=== PATIENT | male | born 1945 | race Caucasian/White ===

== ENCOUNTER 2016-04-26 10:44 | Emergency (ER) | payer MEDICARE ==
[2016-04-26] MEDS ORDERED: Sodium Chloride 0.9% 10 ML Syringe FLUSH PRN (11:33)
[2016-04-26] MEDS ORDERED: Ondansetron 4 MG/2 ML SDV IVPUSH ONE (11:36)
[2016-04-26] MEDS ORDERED: HYDROmorphone 0.5 MG/0.5 ML Syringe IVPUSH ONE (11:36)
--- NOTE | 2016-04-26 11:38 | EDM.PDOC ---
ED HPI GI/ABDOMINAL - General Chief Complaint: Flank Pain Stated Complaint: LOWER BACK/ABD PAIN TOWARDS LT Time Seen by Provider: 04/26/16 11:28 Source: Reports: Patient, Family, RN notes reviewed History Limitations: Reports: No limitations - History of Present Illness INITIAL COMMENTS - FREE TEXT/NARRATIVE: 71-year-old gentleman presents emergency Department a complaint of left flank and lower abdominal pain, he states the pain awoke him this morning it will gradually become intense 8/10 and then slowly fade off and has been cyclical denies any fevers does get nausea with the pain, no history of abdominal surgery remote history of kidney stones in his 20s - Related Data Allergies/ADRs: Allergies Allergy/AdvReac Type Severity Reaction Status Date / Time naproxen Allergy Other Uncoded 04/26/16 11:00 Home Meds: Home Meds Aspirin/Calcium Carbonate/Mag [Aspirin Buffered 325 mg Tab] 325 mg PO BEDTIME [History] Lisinopril 2.5 mg PO BEDTIME 11/05/13 [History] Metoprolol Succinate 12.5 mg PO BEDTIME 11/05/13 [History] Rosuvastatin [Crestor] 5 mg PO BEDTIME 11/05/13 [History] Past Medical History Cardiovascular History: Reports: CAD, High cholesterol, Hypertension Gastrointestinal History: Reports: Pancreatitis Other Gastrointestinal History: 2013 Musculoskeletal History: Reports: Other (see below) Other Musculoskeletal History: rotator cuff surgery rt repaired in 2010 - Infectious Disease History Infectious Disease History: Reports: Chicken pox, Measles, Mumps, Shingles - Past Surgical History Cardiovascular Surgical History: Reports: Other (see below) Other Cardiovascular Surgeries/Procedures: angioplasty with stents in 2008 Social & Family History - Tobacco Use Smoking Status *Q: Former Smoker Years of Tobacco use: 35 Used Tobacco, but Quit: Yes Month Tobacco Last Used: 1998 Second Hand Smoke Exposure: No - Caffeine Use Caffeine Use: Reports: Coffee Other Caffeine Use: 2 cups q day - Alcohol Use Days Per Week of Alcohol Use: 7 Number of Drinks Per Day: 2 Total Drinks Per Week: 14 Date of Last Drink: 04/25/16 - Recreational Drug Use Recreational Drug Use: No ED ROS GENERAL - Review of Systems Review Of Systems: See Below Constitutional: Denies: fever, chills HEENT: Reports: No symptoms Respiratory: Reports: no symptoms Cardiovascular: Reports: No symptoms GI/Abdominal: Reports: Abdominal pain, Nausea : Reports: no symptoms Musculoskeletal: Reports: back pain Skin: Reports: no symptoms Neurological: Reports: no symptoms ED EXAM, GI/ABD - Physical Exam Exam: See Below Text/Narrative:: General: Male, mild discomfort secondary to pain, alert and oriented x3 HEENT: head is atraumatic normocephalic, eyes pupils equal round reactive to light and accommodation sclera clear no conjunctivitis appreciated. Ears tympanic membranes clear and [place]acheco landmarks and light reflex are present bilaterally canals are clear. Nose no septal deviation, nares are clear, no blood present. Mouth mucosa is moist and pink no erythema or exudate noted in soft palate, tongue is midline uvula is midline, dentition is intact. Neck: Supple no thyromegaly no tracheal deviation. Nodes: Cervical nodes subclavicular nodes nontender no palpable lymphadenopathy noted. Lungs: clear to auscultation bilaterally with symmetrical respirations, no adventitious noise appreciated. CV: Regular rate and rhythm S1 and S2 appreciated no murmurs rubs or gallops noted. Abdomen: Soft, tender to palpation left flank area, no palpable masses or organomegaly appreciated, no distention no guarding bowel sounds are present, . Neuro: Cranial nerves II through XII grossly intact Skin: Warm and dry, intact Extremities: No lower extremity edema appreciated, Course - Vital Signs Last Recorded V/S: Last Vital Signs Temp 96.8 F 04/26/16 11:01 Pulse 58 L 04/26/16 11:01 Resp 16 04/26/16 11:01 BP 150/92 H 04/26/16 11:01 Pulse Ox 94 L 04/26/16 11:01 - Orders/Labs/Meds Orders: Active Orders 24 hr Category Date Time Status Peripheral IV Care [RC] . DIRECTED Care 04/26/16 11:34 Active UA W/MICROSCOPIC [URIN] Urgent Lab 04/26/16 11:33 Uncollected Iopamidol [Isovue-300 (61%)] Med 04/26/16 12:16 Active 148 ml IV . DIRECTED PRN Sodium Chloride 0.9% [Normal Saline] 1,000 ml Med 04/26/16 11:45 Active IV ASDIRECTED Sodium Chloride 0.9% [Normal Saline] 80 ml Med 04/26/16 12:30 Active IV ASDIRECTED Sodium Chloride 0.9% [Saline Flush] Med 04/26/16 11:33 Active 10 ml FLUSH ASDIRECTED PRN Peripheral IV Insertion Adult [OM.PC] Urgent Oth 04/26/16 11:33 Ordered Medication Orders Sodium Chloride (Normal Saline) 1,000 mls @ 500 mls/hr IV ASDIRECTED SUSANA Last Admin: 04/26/16 12:49 Dose: 500 mls/hr Sodium Chloride (Normal Saline) 80 mls @ 3.5 mls/sec IV ASDIRECTED SUSANA Last Admin: 04/26/16 12:22 Dose: 3.5 mls/sec Iopamidol (Isovue-300 (61%)) 148 ml IV . DIRECTED PRN PRN Reason: RADIOLOGY EXAM Stop: 04/27/16 12:17 Last Admin: 04/26/16 12:23 Dose: 148 ml Sodium Chloride (Saline Flush) 10 ml FLUSH ASDIRECTED PRN PRN Reason: Keep Vein Open Last Admin: 04/26/16 12:54 Dose: 10 ml Labs: Laboratory Tests 04/26/16 04/26/16 04/26/16 Range/Units 11:40 11:40 11:40 WBC 8.9 (4.5-11.0) K/uL RBC 4.43 (4.30-5.90) M/uL Hgb 14.9 D (12.0-15.0) g/dL Hct 39.6 L (40.0-54.0) % MCV 89 (80-98) fL MCH 34 H (27-31) pg MCHC 38 H (32-36) % Plt Count 132 L (150-400) K/uL Neut % (Auto) 81 H (36-66) % Lymph % (Auto) 10 L (24-44) % [place] % (Auto) 7 H (2-6) % Eos % (Auto) 2 (2-4) % Baso % (Auto) 1 (0-1) % Sodium 138 L (140-148) mmol/L Potassium 4.0 (3.6-5.2) mmol/L Chloride 103 (100-108) mmol/L Carbon Dioxide 23 (21-32) mmol/L Anion Gap 16.0 H (5.0-14.0) mmol/L BUN 31 H D (7-18) mg/dL Creatinine 1.3 (0.8-1.3) mg/dL Est Cr Clr Drug Dosing TNP Estimated GFR (MDRD) 54 L (>60) Glucose 221 H (74-106) mg/dL Lactic Acid 1.4 (0.4-2.0) mmol/L Calcium 8.4 L (8.5-10.1) mg/dL Total Bilirubin 1.0 (0.2-1.0) mg/dL AST 39 H D (15-37) U/L ALT 69 D (12-78) U/L Alkaline Phosphatase 51 (46-116) U/L Troponin I < 0.017 (0.000-0.056) ng/mL Total Protein 6.9 (6.4-8.2) g/dL Albumin 4.2 (3.4-5.0) g/dL Globulin 2.7 (2.3-3.5) g/dL Albumin/Globulin Ratio 1.6 (1.2-2.2) Lipase 114 (73-393) U/L Meds: Medications Generic Name Dose Route Start Last Admin Trade Name Freq PRN Reason Stop Dose Admin Sodium Chloride 1,000 mls @ 500 mls/hr 04/26/16 11:45 04/26/16 12:49 Normal Saline IV 500 mls/hr ASDIRECTED SUSANA Administration Sodium Chloride 80 mls @ 3.5 mls/sec 04/26/16 12:30 04/26/16 12:22 Normal Saline IV 3.5 mls/sec ASDIRECTED SUSANA Administration Iopamidol 148 ml 04/26/16 12:16 04/26/16 12:23 Isovue-300 (61%) IV 04/27/16 12:17 148 ml . DIRECTED PRN Administration RADIOLOGY EXAM Sodium Chloride 10 ml 04/26/16 11:33 04/26/16 12:54 Saline Flush FLUSH 10 ml ASDIRECTED PRN Administration Keep Vein Open Discontinued Medications Generic Name Dose Route Start Last Admin Trade Name Freq PRN Reason Stop Dose Admin Hydromorphone HCl 0.5 mg 04/26/16 11:36 04/26/16 11:48 Dilaudid IVPUSH 04/26/16 11:37 0.5 mg ONETIME ONE Administration Ketorolac Tromethamine 30 mg 04/26/16 13:24 Toradol IVPUSH 02/28/17 13:25 ONETIME ONE Ondansetron HCl 4 mg 04/26/16 11:36 04/26/16 11:48 Zofran IVPUSH 04/26/16 11:37 4 mg ONETIME ONE Administration Sodium Chloride 10 ml 04/26/16 12:16 04/26/16 12:23 Saline Flush FLUSH 04/26/16 12:17 10 ml ONETIME ONE Administration Departure - Departure Time of Disposition: 13:32 Disposition: Home, Self-Care 01 Condition: good Clinical Impression: Nephrolithiasis Forms: ED Department Discharge Additional Instructions: use hydrocodone as needed for pain control in combination with ibuprofen, try and strain her urine and capture the stone for pathology, Please followup with your primary care provider in 7-10 days if not better, please call return to the emergency department with worsening of symptoms. - My Orders Last 24 Hours: My Active Orders 04/26/16 11:33 UA W/MICROSCOPIC [URIN] Urgent Sodium Chloride 0.9% [Saline Flush] 10 ml FLUSH ASDIRECTED PRN Peripheral IV Insertion Adult [OM.PC] Urgent 04/26/16 11:34 Peripheral IV Care [RC] . DIRECTED 04/26/16 11:45 Sodium Chloride 0.9% [Normal Saline] 1,000 ml IV ASDIRECTED 04/26/16 12:16 Iopamidol [Isovue-300 (61%)] 148 ml IV . DIRECTED PRN 04/26/16 12:30 Sodium Chloride 0.9% [Normal Saline] 80 ml IV ASDIRECTED - Assessment/Plan Last 24 Hours: My Active Orders 04/26/16 11:33 UA W/MICROSCOPIC [URIN] Urgent Sodium Chloride 0.9% [Saline Flush] 10 ml FLUSH ASDIRECTED PRN Peripheral IV Insertion Adult [OM.PC] Urgent 04/26/16 11:34 Peripheral IV Care [RC] . DIRECTED 04/26/16 11:45 Sodium Chloride 0.9% [Normal Saline] 1,000 ml IV ASDIRECTED 04/26/16 12:16 Iopamidol [Isovue-300 (61%)] 148 ml IV . DIRECTED PRN 04/26/16 12:30 Sodium Chloride 0.9% [Normal Saline] 80 ml IV ASDIRECTED Plan: Assessment Acuity = acute Site and laterality = left-sided nephrolithiasis 4 mm in size Etiology = unknown pathology Manifestations = left-sided flank pain Location of injury = home Lab values = platelets low at 1 tissue consistent with a thrombocytopenia sodium load 138 this with hyponatremia glucose elevated to 21 consistent hyperglycemia AST elevated at 39 consistent elevated liver enzymes CT does demonstrate the stone described above Plan he had good pain relief combination Toradol and Dilaudid plan is to discharge home with hydrocodone for pain control in combination with Motrin he is to push fluids strain his urine try and capture the stone follow up with primary care in 7-10 days if no improvement Patient was in agreement with the plan all questions were answered, they were instructed to return to the emergency department or call for worsening symptoms. This note was dictated using [employer] voice recognition software please call with any questions.
[2016-04-26] MEDS ORDERED: Sodium Chloride 0.9% 1,000 ML IV SCH (11:45)
[2016-04-26] MEDS ORDERED: Sodium Chloride 0.9% 10 ML Syringe FLUSH ONE (12:16)
[2016-04-26] MEDS ORDERED: Iopamidol 612 MG/ML 150 ML Bottle IV PRN (12:16)
[2016-04-26] MEDS ORDERED: Sodium Chloride 0.9% 80 ML IV SCH (12:30)
--- NOTE | 2016-04-26 12:42 | CT ---
Abdomen Pelvis w Cont HISTORY: Sided pain. Dose: Total DLP 1206 COMPARISON: Prior CT scan 11/05/2013. FINDINGS: Moderate left-sided hydronephrosis caused by obstructing stone in the proximal left ureter seen on axial image 69 measuring approximately 4 mm. This is seen on coronal image 49. There is diffuse fatty infiltration of liver. Small cyst in the left hepatic lobe measuring 1.5 cm. Spleen, pancreas, adrenal glands, abdominal aorta appear normal. There are some nonobstructing small stones seen in the right kidney measuring up to 7 mm in size. Pelvis appears unremarkable. Impression: 1. 4 mm moderately obstructing stone in the proximal left ureter. Findings called to the emergency room physician at 12:29 PM hours
[2016-04-26] MEDS ORDERED: Ketorolac 30 MG/ML SDV IVPUSH ONE (13:24)
[2016-04-26 15:31] VITALS: BP 138/101
== END 2016-04-26 14:35 | disposition home or self-care (01) ==
LOC: JP.ED 10:44
DX: N13.2 Hydronephrosis with renal and ureteral calculous obstruction (principal); I25.10 Atherosclerotic heart disease of native coronary artery without angina pectoris; E78.00 Pure hypercholesterolemia, unspecified; I10 Essential (primary) hypertension; Z87.891 Personal history of nicotine dependence; Z88.8 Allergy status to other drugs, medicaments and biological substances; Z79.82 Long term (current) use of aspirin; Z79.899 Other long term (current) drug therapy; Z95.5 Presence of coronary angioplasty implant and graft
CPT/HCPCS: 36415; 74177; 80053; 83605; 83690; 84484; 85025; 96361; 96374; 96375; 99284; J1170; J1885; J2405; J7030; J7040; J7050

== ENCOUNTER 2017-06-28 10:43 | Emergency (ER) | payer MEDICARE ==
--- NOTE | 2017-06-28 11:37 | EDM.PDOC ---
ED HPI GENERAL MEDICAL PROBLEM - General Chief Complaint: Abdominal Pain Stated Complaint: PAIN IN STOMACH AREA Time Seen by Provider: 06/28/17 11:33 Source of Information: Reports: Patient History Limitations: Reports: No Limitations - History of Present Illness INITIAL COMMENTS - FREE TEXT/NARRATIVE: pt arrived with pain in the lower abdoman. He is having trouble with incontinence of urine. He has no pain when he voids. He did have one loos stool but he had no further problems. Onset: Today Duration: Hour(s): Location: Reports: Other (pt can not control his urine. ) Associated Symptoms: Reports: Other ( pt is having trouble controlling the urine. ) Lower Abdominal Pain Score (Numeric/FACES): 3 - Related Data Allergies Allergy/AdvReac Type Severity Reaction Status Date / Time naproxen Allergy Other Uncoded 04/26/16 11:00 Home Meds: Home Meds Aspirin/Calcium Carbonate/Mag [Aspirin Buffered 325 mg Tab] 325 mg PO BEDTIME [History] Lisinopril 2.5 mg PO BEDTIME 11/05/13 [History] Metoprolol Succinate 12.5 mg PO BEDTIME 11/05/13 [History] Rosuvastatin [Crestor] 5 mg PO BEDTIME 11/05/13 [History] metFORMIN [Glucophage] 1,000 mg PO BIDMEALS 06/28/17 [History] Past Medical History HEENT History: Reports: Impaired Vision Cardiovascular History: Reports: CAD, High Cholesterol, Hypertension Gastrointestinal History: Reports: Pancreatitis Other Gastrointestinal History: 2013 Genitourinary History: Reports: Renal Calculus, UTI, Recurrent Musculoskeletal History: Reports: Back Pain, Chronic Other Musculoskeletal History: rotator cuff surgery rt repaired in 2010 Endocrine/Metabolic History: Reports: Diabetes, Type II - Infectious Disease History Infectious Disease History: Reports: Chicken Pox, Measles, Mumps, Shingles - Past Surgical History Cardiovascular Surgical History: Reports: Other (See Below) Social & Family History - Tobacco Use Smoking Status *Q: Never Smoker Years of Tobacco use: 35 Used Tobacco, but Quit: Yes Month/Year Tobacco Last Used: 1998 Second Hand Smoke Exposure: No - Caffeine Use Caffeine Use: Reports: Coffee Other Caffeine Use: 2 cups q day - Alcohol Use Days Per Week of Alcohol Use: 7 Number of Drinks Per Day: 2 Total Drinks Per Week: 14 - Recreational Drug Use Recreational Drug Use: No ED ROS GENERAL - Review of Systems Review Of Systems: See Below Constitutional: Reports: No Symptoms HEENT: Reports: No Symptoms Respiratory: Reports: No Symptoms Cardiovascular: Reports: No Symptoms Endocrine: Reports: No Symptoms GI/Abdominal: Reports: Other (pain in the lower abdoman) : Reports: Incontinence Musculoskeletal: Reports: No Symptoms Skin: Reports: No Symptoms Neurological: Reports: No Symptoms ED EXAM, GI/ABD - Physical Exam Exam: See Below Text/Narrative:: pt arrived with pain in the supra pupic area. He felt this a little last evening but it is much worse this pm.. He is also suddenly incontinent of urine. He has no burning when he does pass his urine. Exam Limited By: No Limitations General Appearance: Alert, Moderate Distress Ears: Normal TMs Nose: Normal Inspection Throat/Mouth: Normal Inspection Head: Atraumatic Neck: Normal Inspection Respiratory/Chest: No Respiratory Distress Cardiovascular: Regular Rate, Rhythm GI/Abdominal Exam: Other (pt has mild tenderness in the suprapupic area. He is not guarded. ) (Male) Exam: Deferred Rectal (Males) Exam: Deferred Back Exam: Normal Inspection Extremities: Normal Inspection Neurological: Alert, Oriented, Normal Cognition Psychiatric: Normal Affect Course - Vital Signs Last Recorded V/S: Last Vital Signs Temp 35.5 C 06/28/17 10:54 Pulse 66 06/28/17 10:54 Resp 18 06/28/17 10:54 BP 122/70 06/28/17 10:54 Pulse Ox - Orders/Labs/Meds Orders: Active Orders 24 hr Category Date Time Status UA W/MICROSCOPIC [URIN] Urgent Lab 06/28/17 11:34 Ordered Sodium Chloride 0.9% [Normal Saline] 1,000 ml Med 06/28/17 12:15 Active IV ASDIRECTED Sodium Chloride 0.9% [Normal Saline] 1,000 ml Med 06/28/17 13:45 Active IV ASDIRECTED Tamsulosin [Flomax] Med 06/29/17 09:00 Active 0.4 mg PO PCBREAKFAST Medication Orders Sodium Chloride (Normal Saline) 1,000 mls @ 999 mls/hr IV ASDIRECTED SUSANA Last Admin: 06/28/17 13:39 Dose: 999 mls/hr Infusion: 06/28/17 13:28 Dose: 999 mls/hr Admin: 06/28/17 12:27 Dose: 999 mls/hr Sodium Chloride (Normal Saline) 1,000 mls @ 500 mls/hr IV ASDIRECTED SUSANA Tamsulosin HCl (Flomax) 0.4 mg PO [facility]BREAKFAST [facility] Labs: Laboratory Tests 06/28/17 06/28/17 06/28/17 Range/Units 11:33 11:33 11:34 WBC 7.7 (4.5-11.0) K/uL RBC 4.37 (4.30-5.90) M/uL Hgb 14.6 (12.0-15.0) g/dL Hct 39.4 L (40.0-54.0) % MCV 90 (80-98) fL MCH 33 H (27-31) pg MCHC 37 H (32-36) % Plt Count 148 L (150-400) K/uL Neut % (Auto) 73 H (36-66) % Lymph % (Auto) 13 L (24-44) % [place] % (Auto) 12 H (2-6) % Eos % (Auto) 2 (2-4) % Baso % (Auto) 0 (0-1) % Sodium 141 (140-148) mmol/L Potassium 3.9 (3.6-5.2) mmol/L Chloride 105 (100-108) mmol/L Carbon Dioxide 23 (21-32) mmol/L Anion Gap 12.8 (5.0-14.0) mmol/L BUN 21 H (7-18) mg/dL Creatinine 1.6 H (0.8-1.3) mg/dL Est Cr Clr Drug Dosing TNP Estimated GFR (MDRD) 43 L (>60) Glucose 173 H (74-106) mg/dL Calcium 8.4 L (8.5-10.1) mg/dL Total Bilirubin 1.1 H (0.2-1.0) mg/dL AST 27 (15-37) U/L ALT 47 (12-78) U/L Alkaline Phosphatase 67 (46-116) U/L C-Reactive Protein 2.01 H (0.0-0.3) mg/dL Total Protein 6.5 (6.4-8.2) g/dL Albumin 3.8 (3.4-5.0) g/dL Globulin 2.7 (2.3-3.5) g/dL Albumin/Globulin Ratio 1.4 (1.2-2.2) Urine Color Yellow Urine Appearance Clear Urine pH 5.0 (4.5-8.0) Ur Specific [place] 1.020 (1.008-1.030) Urine Protein Negative (NEGATIVE) mg/dL Urine Glucose (UA) Normal (NEGATIVE) mg/dL Urine Ketones Negative (NEGATIVE) mg/dL Urine Occult Blood Large (NEGATIVE) Urine Nitrite Negative (NEGAITVE) Urine Bilirubin Negative (NEGATIVE) Urine Urobilinogen Normal (NORMAL) mg/dL Ur Leukocyte Esterase Negative (NEGATIVE) Urine RBC 10-20 H (0-5) Urine WBC 0-5 (0-5) Ur Epithelial Cells Not seen Amorphous Sediment Few Urine Bacteria Not seen Urine Mucus Not seen Meds: Medications Generic Name Dose Route Start Last Admin Trade Name Freq PRN Reason Stop Dose Admin Sodium Chloride 1,000 mls @ 999 mls/hr 06/28/17 12:15 06/28/17 13:39 Normal Saline IV 999 mls/hr ASDIRECTED SUSANA Administration Sodium Chloride 1,000 mls @ 500 mls/hr 06/28/17 13:45 Normal Saline IV ASDIRECTED SUSANA Tamsulosin HCl 0.4 mg 06/29/17 09:00 Flomax PO PCBREAKFAST SUSANA Discontinued Medications Generic Name Dose Route Start Last Admin Trade Name Freq PRN Reason Stop Dose Admin Hydromorphone HCl 0.5 mg 06/28/17 13:35 06/28/17 14:09 Dilaudid IVPUSH 06/28/17 13:36 0.5 mg ONETIME ONE Administration Levofloxacin/Dextrose 500 mg/ 100 mls @ 100 mls/hr 06/28/17 13:26 06/28/17 14 :10 Premix IV 06/28/17 14:25 100 mls/hr ONETIME ONE Administration - Re-Assessments/Exams Free Text/Narrative Re-Assessment/Exam: 06/28/17 13:30 pt had rbcs in his urine but very little bacteria, His lab otherwise looked good without elevation in wbc. a cat scan of the abdoman revealed a stone in distal ureter, with a hydro ureter which measurd 9x7x4 Departure - Departure Time of Disposition: 15:16 Disposition: Home, Self-Care 01 Condition: Fair Clinical Impression: Calculus of distal left ureter, Urinary incontinence - Discharge Information Referrals: Giorgio Loja PA [Primary Care Provider] - Forms: ED Department Discharge Care Plan Goals: Dr Zuluaga will call pt and set up a visit. The cat scan has been sent to him., push fluids, percocet 5/325 q6h prn for pin, flomax .4 1 tab daily, rtc if pain should get more severe. cipro 500mg bid - My Orders Last 24 Hours: My Active Orders 06/28/17 11:34 UA W/MICROSCOPIC [URIN] Urgent 06/28/17 12:15 Sodium Chloride 0.9% [Normal Saline] 1,000 ml IV ASDIRECTED 06/28/17 13:45 Sodium Chloride 0.9% [Normal Saline] 1,000 ml IV ASDIRECTED 06/29/17 09:00 Tamsulosin [Flomax] 0.4 mg PO PCBREAKFAST - Assessment/Plan Last 24 Hours: My Active Orders 06/28/17 11:34 UA W/MICROSCOPIC [URIN] Urgent 06/28/17 12:15 Sodium Chloride 0.9% [Normal Saline] 1,000 ml IV ASDIRECTED 06/28/17 13:45 Sodium Chloride 0.9% [Normal Saline] 1,000 ml IV ASDIRECTED 06/29/17 09:00 Tamsulosin [Flomax] 0.4 mg PO PCBREAKFAST
[2017-06-28 12:06] VITALS: BP 122/70
[2017-06-28] MEDS: Sodium Chloride 0.9% 1,000 ML IV SCH ×3 (12:27→14:40)
--- NOTE | 2017-06-28 13:13 | CT ---
Abdomen Pelvis wo Cont CLINICAL HISTORY: Hematuria, low pelvic pain COMPARISON: The TECHNIQUE: Axial tomographic images are obtained from the dome of the diaphragm to the pubic symphysis without IV contrast enhancement. No oral contrast was used. Describe dose FINDINGS: The lung bases are clear. The liver contains a coarse calcification in the dome. This is un changed since prior study. No biliary dilatation is identified. There is a 1.5 cm cyst in the left lo be unchanged from prior study. The gallbladder has a normal appearance. The spleen has a normal size and shape. The pancreas shows no mass. The adrenal glands are normal bilaterally. There is a 7 mm sharmaine cification in the upper pole of the right kidney. There is a punctate calcification in the midpole. T here is no hydronephrosis. The left kidney is hydronephrotic. There is some perinephric stranding. The ureter is mildly dilated along its length. There is periureteral stranding There is a 9 x 7 x 4 mm stone within the distal ure ter. There is mild generalized bladder wall thickening. The prostate is enlarged. The aorta shows atheroma tous calcification without aneurysm. There is no suspicious retroperitoneal adenopathy. IMPRESSION: Moderate left-sided hydronephrosis and hydroureter secondary to an obstructing stone in t he distal left ureter Right renal calculi. Generalized bladder wall thickening secondary to prostatic hypertrophy
[2017-06-28] MEDS ORDERED: Levofloxacin/Dextrose 5%-Water 500 MG in Premix Bag 1 BAG IV ONE (13:26)
[2017-06-28] MEDS ORDERED: HYDROmorphone 0.5 MG/0.5 ML Syringe IVPUSH ONE (13:35)
[2017-06-28] MEDS ORDERED: Sodium Chloride 0.9% 1,000 ML IV SCH (13:45)
[2017-06-29] MEDS ORDERED: Tamsulosin 0.4 MG Cap.ER PO SCH (09:00)
== END 2017-06-28 15:53 | disposition home or self-care (01) ==
LOC: JP.ED 10:43
DX: N13.2 Hydronephrosis with renal and ureteral calculous obstruction (principal); E78.00 Pure hypercholesterolemia, unspecified; E11.9 Type 2 diabetes mellitus without complications; I10 Essential (primary) hypertension; Z87.442 Personal history of urinary calculi; Z87.440 Personal history of urinary (tract) infections; Z88.5 Allergy status to narcotic agent; Z79.82 Long term (current) use of aspirin; Z79.899 Other long term (current) drug therapy; Z79.84 Long term (current) use of oral hypoglycemic drugs
CPT/HCPCS: 36415; 51798; 74176; 80053; 81001; 85025; 86140; 96365; 96366; 96375; 99284; J1170; J1956; J7040

== ENCOUNTER 2017-08-22 16:09 | Emergency (ER) | payer MEDICARE ==
[2017-08-22] MEDS ORDERED: Sodium Chloride 0.9% 10 ML Syringe FLUSH PRN (16:13)
--- NOTE | 2017-08-22 16:35 | EDM.PDOC ---
ED HPI GENERAL MEDICAL PROBLEM - General Chief Complaint: Chest Pain Stated Complaint: SENT FROM CLINIC Time Seen by Provider: 08/22/17 16:35 Source of Information: Reports: Patient, Old Records, Provider History Limitations: Reports: No Limitations - History of Present Illness INITIAL COMMENTS - FREE TEXT/NARRATIVE: 72 yo male presented to the clinic today with about a 1.5 wk hx of intermittent anterior neck pain that seemed related to exertion. Patient mentioned at that appt that the pain reminded him of anginal pain he had had in ' before he got ? 3 stents at [facility] for coronary dz. He is/was asymptomatic of this neck pain now, but his Trop is elevated in the clinic so he is sent here for eval and likely transfer. He denies SOB, nausea, or diaphoresis. ASA 81 mg x 4 was given in the clinic. EKG in the clinic showed no significant change. Onset Date: 08/12/17 Duration: Week(s): (1.5), Intermittent, Waxing/Waning Location: Reports: Neck Quality: Reports: Ache Severity: Moderate Improves with: Reports: Rest Worsens with: Reports: Other (exertion) Context: Reports: Other (Hx of CAD) Associated Symptoms: Reports: No Other Symptoms Treatments RESEARCH NURSE: Reports: Aspirin Denies Pain Score (Numeric/FACES): 0 - Related Data Allergies Allergy/AdvReac Type Severity Reaction Status Date / Time naproxen Allergy Other Uncoded 08/22/17 16:31 Home Meds: Home Meds Lisinopril 2.5 mg PO BEDTIME 11/05/13 [History] Metoprolol Succinate 12.5 mg PO BEDTIME 11/05/13 [History] Rosuvastatin [Crestor] 5 mg PO BEDTIME 11/05/13 [History] metFORMIN [Glucophage] 1,000 mg PO BIDMEALS 06/28/17 [History] Aspirin [Low Dose Aspirin EC] 1 tab PO DAILY 08/22/17 [History] Past Medical History HEENT History: Reports: Impaired Vision Cardiovascular History: Reports: CAD, High Cholesterol, Hypertension Gastrointestinal History: Reports: Pancreatitis Other Gastrointestinal History: 2013 Genitourinary History: Reports: Renal Calculus, UTI, Recurrent Musculoskeletal History: Reports: Back Pain, Chronic Other Musculoskeletal History: rotator cuff surgery rt repaired in 2010 Endocrine/Metabolic History: Reports: Diabetes, Type II, Obesity/BMI 30+ - Infectious Disease History Infectious Disease History: Reports: Chicken Pox - Past Surgical History Cardiovascular Surgical History: Reports: Other (See Below) Social & Family History - Caffeine Use Caffeine Use: Reports: Coffee Other Caffeine Use: 2 cups q day ED ROS GENERAL - Review of Systems Review Of Systems: See Below Constitutional: Reports: No Symptoms HEENT: Reports: No Symptoms Respiratory: Reports: No Symptoms Cardiovascular: Reports: No Symptoms GI/Abdominal: Reports: No Symptoms : Reports: No Symptoms Musculoskeletal: Reports: Neck Pain Skin: Reports: No Symptoms Neurological: Reports: No Symptoms ED EXAM, GENERAL - Physical Exam Exam: See Below Exam Limited By: No Limitations General Appearance: Alert, WD/WN, No Apparent Distress Eye Exam: Bilateral Eye: Normal Inspection Ears: Normal External Exam, Normal Canal, Hearing Grossly Normal Ear Exam: Bilateral Ear: Auricle Normal, Canal Normal Nose: Normal Inspection, Normal Mucosa, No Blood Throat/Mouth: Normal Inspection, Normal Lips, Normal Oropharynx, Normal Voice, No Airway Compromise Head: Atraumatic, Normocephalic Neck: Normal Inspection, Supple, Non-Tender Respiratory/Chest: No Respiratory Distress, Lungs Clear, Normal Breath Sounds, No Accessory Muscle Use Cardiovascular: Regular Rate, Rhythm, No Edema GI/Abdominal: Normal Bowel Sounds, Soft, Non-Tender, No Distention Back Exam: Normal Inspection. No: CVA Tenderness (R), CVA Tenderness (L) Extremities: Normal Inspection, Normal Range of Motion, Non-Tender, No Pedal Edema Neurological: Alert, Oriented, CN II-XII Intact, Normal Cognition, No Motor/ Sensory Deficits Psychiatric: Normal Affect, Normal Mood Skin Exam: Warm, Dry, Intact, Normal Color, No Rash Lymphatic: No Adenopathy Course - Vital Signs Last Recorded V/S: Last Vital Signs Temp 37.4 C 08/22/17 16:37 Pulse 59 L 08/22/17 16:37 Resp 14 08/22/17 16:37 BP 143/84 H 08/22/17 16:37 Pulse Ox 97 08/22/17 16:37 - Orders/Labs/Meds Orders: Active Orders 24 hr Category Date Time Status Cardiac Monitoring [RC] .As Directed Care 08/22/17 16:14 Active Sodium Chloride 0.9% [Saline Flush] Med 08/22/17 16:13 Active 10 ml FLUSH ASDIRECTED PRN Saline Lock Insert [OM.PC] Routine Oth 08/22/17 16:13 Ordered Medication Orders Sodium Chloride (Saline Flush) 10 ml FLUSH ASDIRECTED PRN PRN Reason: Keep Vein Open Meds: Medications Generic Name Dose Route Start Last Admin Trade Name Freq PRN Reason Stop Dose Admin Sodium Chloride 10 ml 08/22/17 16:13 Saline Flush FLUSH ASDIRECTED PRN Keep Vein Open Departure - Departure Time of Disposition: 18:00 Disposition: DC/Tfer to Acute Hospital 02 Reason for Transfer *Q: Other Condition: Fair Clinical Impression: Elevated troponin I level Coronary artery disease Qualifiers: Coronary Disease-Associated Artery/Lesion type: unspecified vessel or lesion type [place] vs. transplanted heart: [place] heart Associated angina: with unspecified angina Qualified Code(s): I25.119 - Atherosclerotic heart disease of [place] coronary artery with unspecified angina pectoris Referrals: Louie Castro MD [Primary Care Provider] - Forms: ED Department Discharge - My Orders Last 24 Hours: My Active Orders 08/22/17 16:13 Sodium Chloride 0.9% [Saline Flush] 10 ml FLUSH ASDIRECTED PRN Saline Lock Insert [OM.PC] Routine 08/22/17 16:14 Cardiac Monitoring [RC] .As Directed - Assessment/Plan Last 24 Hours: My Active Orders 08/22/17 16:13 Sodium Chloride 0.9% [Saline Flush] 10 ml FLUSH ASDIRECTED PRN Saline Lock Insert [OM.PC] Routine 08/22/17 16:14 Cardiac Monitoring [RC] .As Directed
[2017-08-22] MEDS ORDERED: Heparin Sodium 5,000 Units/ML Vial IVPUSH ONE (17:14)
[2017-08-22] MEDS ORDERED: Heparin Sodium/D5W 25,000 UNITS/500 ML BAG IV SCH (17:15)
[2017-08-22 18:56] VITALS: BP 133/80
== END 2017-08-22 20:04 ==
LOC: JP.ED 16:09
DX: I25.119 Atherosclerotic heart disease of native coronary artery with unspecified angina pectoris (principal); R79.89 Other specified abnormal findings of blood chemistry; E78.00 Pure hypercholesterolemia, unspecified; I10 Essential (primary) hypertension; Z88.5 Allergy status to narcotic agent; Z79.899 Other long term (current) drug therapy; Z79.82 Long term (current) use of aspirin; Z79.84 Long term (current) use of oral hypoglycemic drugs
CPT/HCPCS: 96365; 96366; 96376; 99283; 99285; J1644

== ENCOUNTER 2020-08-09 19:26 | Emergency (ER) | payer MEDICARE ==
[2020-08-09 20:14] VITALS: BP 140/81; PULSE 91
[2020-08-09] MEDS ORDERED: Sodium Chloride 0.9% 1,000 ML IV SCH (20:30)
--- NOTE | 2020-08-09 20:39 | EDM.PDOC ---
ED HPI GENERAL MEDICAL PROBLEM - General Chief Complaint: Bite:Animal, Insect Stated Complaint: FEVER, BODYACHES, HEADACHE, SHIVERS, TICK BITE Time Seen by Provider: 08/09/20 20:05 Source of Information: Reports: Patient History Limitations: Reports: No Limitations - History of Present Illness INITIAL COMMENTS - FREE TEXT/NARRATIVE: 75 yo male presents to ER with fever, chills, general malaise for the last 2 days. yesterday in the AM he was initially feeling ill then this cleared but returned last evening. This morning woke with chills, generally felt ill all day. urinary frequency. MHx of BPH, DM II and CAD. - Related Data Allergies Allergy/AdvReac Type Severity Reaction Status Date / Time naproxen Allergy Other Uncoded 08/09/20 20:06 Home Meds: Home Meds Lisinopril 2.5 mg PO BEDTIME 11/05/13 [History] Metoprolol Succinate 12.5 mg PO BEDTIME 11/05/13 [History] Rosuvastatin [Crestor] 5 mg PO BEDTIME 11/05/13 [History] Aspirin [Low Dose Aspirin EC] 1 tab PO DAILY 08/22/17 [History] Empagliflozin [Jardiance] 1 tab PO DAILY 08/09/20 [History] carBAMazepine [Carbamazepine ER] 1 tab PO DAILY 08/09/20 [History] Past Medical History HEENT History: Reports: Impaired Vision Cardiovascular History: Reports: CAD, High Cholesterol, Hypertension Gastrointestinal History: Reports: Pancreatitis Other Gastrointestinal History: 2013 Genitourinary History: Reports: Renal Calculus, UTI, Recurrent Musculoskeletal History: Reports: Back Pain, Chronic Other Musculoskeletal History: rotator cuff surgery rt repaired in 2010 Endocrine/Metabolic History: Reports: Diabetes, Type II, Obesity/BMI 30+ - Infectious Disease History Infectious Disease History: Reports: Chicken Pox - Past Surgical History Cardiovascular Surgical History: Reports: Other (See Below) Other Cardiovascular Surgeries/Procedures: angioplasty with stents in 2008 Social & Family History - Tobacco Use Tobacco Use Status *Q: Never Tobacco User - Caffeine Use Caffeine Use: Reports: Coffee Other Caffeine Use: 2 cups q day ED ROS GENERAL - Review of Systems Review Of Systems: See Below Constitutional: Reports: Fever, Chills, Malaise, Fatigue HEENT: Denies: Sinus Problem, Throat Pain Respiratory: Denies: Shortness of Breath, Wheezing Cardiovascular: Denies: Chest Pain GI/Abdominal: Denies: Abdominal Pain : Reports: Frequency Skin: Reports: Other (tick bite righ trunk mild erythemia) ED EXAM, ANIMAL BITE - Physical Exam Exam: See Below Exam Limited By: No Limitations General Appearance: Alert, WD/WN, No Apparent Distress Head: Atraumatic, Normocephalic Neck: Normal Inspection, Supple, Non-Tender, Full Range of Motion. No: Lymphadenopathy (R), Lymphadenopathy (L) Respiratory/Chest: No Respiratory Distress, Lungs Clear, Normal Breath Sounds. No: Crackles, Rhonchi, Wheezing Cardiovascular: Regular Rate, Rhythm, No Murmur GI/Abdominal: Soft, Non-Tender Neurological: Alert, Oriented, CN II-XII Intact, Normal Cognition Skin Exam: Normal Color, Warm/Dry, Rash (right trunk mild erythema surrounding tick bite) Course - Vital Signs Last Recorded V/S: Last Vital Signs Temp 36.4 C 08/09/20 20:13 Pulse 91 08/09/20 20:13 Resp 14 08/09/20 20:13 BP 140/81 08/09/20 20:13 Pulse Ox 96 08/09/20 20:13 - Orders/Labs/Meds Orders: Active Orders 24 hr Category Date Time Status BABESIA MICROTI ANTIBODY PANEL Urgent Lab 08/09/20 20:35 Received LYME, TOTAL AB TEST/REFLEX Stat Lab 08/09/20 20:35 Received Sodium Chloride 0.9% [Normal Saline] 1,000 ml Med 08/09/20 20:30 Active IV ASDIRECTED Medication Orders Sodium Chloride (Normal Saline) 1,000 mls @ 500 mls/hr IV ASDIRECTED SUSANA Labs: Laboratory Tests 08/09/20 08/09/20 08/09/20 Range/Units 20:35 20:35 21:40 WBC 9.2 (4.5-11.0) K/uL RBC 4.38 (4.30-5.90) M/uL Hgb 15.2 H (12.0-15.0) g/dL Hct 41.5 (40.0-54.0) % MCV 95 (80-98) fL MCH 35 H (27-31) pg MCHC 37 H (32-36) % Plt Count 113 L (150-400) K/uL Neut % (Auto) 82.7 H (36-66) % Lymph % (Auto) 5.6 L (24-44) % [place] % (Auto) 10.4 H (2-6) % Eos % (Auto) 0.8 L (2-4) % Baso % (Auto) 0.5 (0-1) % Sodium 138 L (140-148) mmol/L Potassium 3.7 (3.6-5.2) mmol/L Chloride 101 (100-108) mmol/L Carbon Dioxide 22 (21-32) mmol/L Anion Gap 18.7 H (5.0-14.0) mmol/L BUN 21 H (7-18) mg/dL Creatinine 1.1 (0.8-1.3) mg/dL Est Cr Clr Drug Dosing 56.14 mL/min Estimated GFR (MDRD) > 60 (>60) Glucose 137 H (74-106) mg/dL Calcium 9.1 (8.5-10.1) mg/dL Urine Color Yellow (YELLOW) Urine Appearance Clear (CLEAR) Urine pH 5.5 (5.0-8.0) Ur Specific [place] 1.025 (1.008-1.030) Urine Protein 30 H (NEGATIVE) mg/dL Urine Glucose (UA) 500 H (NEGATIVE) mg/dL Urine Ketones 40 H (NEGATIVE) mg/dL Urine Occult Blood Moderate H (NEGATIVE) Urine Nitrite Negative (NEGATIVE) Urine Bilirubin Negative (NEGATIVE) Urine Urobilinogen 0.2 (0.2-1.0) EU/dL Ur Leukocyte Esterase Negative (NEGATIVE) Urine RBC 0-5 (0-5) Urine WBC 5-10 H (0-5) Ur Epithelial Cells Rare Amorphous Sediment Not seen Urine Bacteria Not seen Urine Mucus Not seen Meds: Medications Generic Name Dose Route Start Last Admin Trade Name Freq PRN Reason Stop Dose Admin Sodium Chloride 1,000 mls @ 500 mls/hr 08/09/20 20:30 Normal Saline IV ASDIRECTED SUSANA Departure - Departure Time of Disposition: 22:12 Disposition: Home, Self-Care 01 Condition: Good Clinical Impression: Tick borne fever - Discharge Information *PRESCRIPTION DRUG MONITORING PROGRAM REVIEWED*: Not Applicable *COPY OF PRESCRIPTION DRUG MONITORING REPORT IN PATIENT MARVIN: Not Applicable Referrals: PCP,None [Primary Care Provider] - Forms: ED Department Discharge Additional Instructions: you are pretty dehydrated you should increase fluid intake with goal of 2 liters per day doxycycline 100 mg twice daily for 14 days if no improvement by Wed follow-up with primary care provider Sepsis Event Note (ED) - Evaluation Sepsis Screening Result: No Definite Risk - Focused Exam Vital Signs: Vital Signs Temp Pulse Resp BP Pulse Ox 08/09/20 20:13 36.4 C 91 14 140/81 96 - My Orders Last 24 Hours: My Active Orders 08/09/20 20:30 Sodium Chloride 0.9% [Normal Saline] 1,000 ml IV ASDIRECTED 08/09/20 20:35 BABESIA MICROTI ANTIBODY PANEL Urgent LYME, TOTAL AB TEST/REFLEX Stat - Assessment/Plan Last 24 Hours: My Active Orders 08/09/20 20:30 Sodium Chloride 0.9% [Normal Saline] 1,000 ml IV ASDIRECTED 08/09/20 20:35 BABESIA MICROTI ANTIBODY PANEL Urgent LYME, TOTAL AB TEST/REFLEX Stat
[2020-08-12 09:12] LABS: LYME IGG/IGM AB <0.91 ISR (0.00-0.90)
[2020-08-13 16:09] LABS: BABESIA MICROTI IGG <1:10 (Neg:<1:10); BABESIA MICROTI IGM <1:10 (Neg:<1:10)
== END 2020-08-09 22:24 | disposition home or self-care (01) ==
LOC: JP.ED 19:26
DX: A93.8 Other specified arthropod-borne viral fevers (principal); I25.10 Atherosclerotic heart disease of native coronary artery without angina pectoris; E78.00 Pure hypercholesterolemia, unspecified; E11.9 Type 2 diabetes mellitus without complications; I10 Essential (primary) hypertension; E66.9 Obesity, unspecified; Z88.5 Allergy status to narcotic agent; Z68.34 Body mass index [BMI] 34.0-34.9, adult
CPT/HCPCS: 36415; 80048; 81001; 85025; 86618; 86753; 99283; 99284

== ENCOUNTER 2022-03-28 16:10 | Emergency (ER) | payer MEDICARE ==
[2022-03-28 17:31] LABS: CORONAVIRUS COVID-19 NAA NEGATIVE (NEGATIVE)
[2022-03-28 18:18] LABS: ESTIMATED GFR 63 mL/min (>60); TROPONIN I HIGH SENSITIVITY 14.2 pg/mL (<=60.3)
[2022-03-28] MEDS ORDERED: Furosemide 40 MG/4 ML VIAL IVPUSH ONE (19:23)
[2022-03-28] MEDS ORDERED: Sodium Chloride 0.9% 10 ML Syringe FLUSH PRN (19:23)
[2022-03-28] MEDS ORDERED: fentaNYL 50 MCG/ML SDV IVPUSH ONE (19:35)
[2022-03-28 22:19] VITALS: BP 121/61; PULSE 65
== END 2022-03-28 22:45 | disposition home or self-care (01) ==
LOC: JP.ED 16:10
DX: I11.0 Hypertensive heart disease with heart failure (principal); I50.43 Acute on chronic combined systolic (congestive) and diastolic (congestive) heart failure; I25.119 Atherosclerotic heart disease of native coronary artery with unspecified angina pectoris; E66.9 Obesity, unspecified; F17.210 Nicotine dependence, cigarettes, uncomplicated; I25.10 Atherosclerotic heart disease of native coronary artery without angina pectoris; Z20.822 Contact with and (suspected) exposure to COVID-19; Z88.8 Allergy status to other drugs, medicaments and biological substances
CPT/HCPCS: 0241U; 36415; 71046; 80053; 83690; 83880; 84484; 85025; 93005; 96374; 99285; J1940; 93010; 93306; 99284